=== PATIENT | female | born 1995 | race Caucasian/White ===

== ENCOUNTER 2021-07-03 11:32 | Emergency (ER) | payer BC ==
[~2021-07-03] VITALS: Ht 149.9 cm; Wt 65.9 kg
[2021-07-03] MEDS ORDERED: KETOROLAC TROMETHAMINE 30 MG/ML VIAL IM ONE (13:00)
[2021-07-03 13:15] VITALS: BP 134/81
== END 2021-07-03 13:56 | disposition home or self-care (01) ==
LOC: EMS 11:32
DX: S93.402A Sprain of unspecified ligament of left ankle, initial encounter (principal); S93.401A Sprain of unspecified ligament of right ankle, initial encounter; X58.XXXA Exposure to other specified factors, initial encounter; Y93.89 Activity, other specified; Y92.89 Other specified places as the place of occurrence of the external cause; Y99.8 Other external cause status
CPT/HCPCS: 29515; 73610; 96372; 99283; J1885